=== PATIENT | male | born 1985 | race Caucasian/White ===

== ENCOUNTER 2017-08-29 17:35 | Observation (INO) ==
[2017-08-29] MEDS ORDERED: *HR* FentaNYL (PF) 100 MCG/2 ML VIAL IVP ONE ×2 (17:37→18:33)
--- NOTE | 2017-08-29 17:41 | Emergency Department Note ---
Disposition Clinical Impression: Traumatic amputation of digit of one hand without complication Disposition: Admitted As Inpatient Condition: Good Instructions: Finger Amputation (ED) Reasons to Return/Additional Instructions: Please closely follow the discharge instructions as provided to you by the orthopedic service. Return to the emergency department immediately should you have any other concerns Prescriptions: HYDROcodone/Acet 10/325 mg [[place] 10-325 mg] 1 tab PO Q6HR PRN 3 Days #18 tab PRN Reason: Pain Ibuprofen [Motrin] 800 mg PO Q8HR PRN #20 tablet PRN Reason: Pain cephALEXin [Keflex] 500 mg PO TID #30 capsule Referrals: Marcus Damon MD [Partnered Physician] - [facility] [Outside] Forms: ED Satisfaction Letter Time of Disposition: 19:11 Upper Extremity HPI - General Chief Complaint: ED Extremity Injury, Upper Stated Complaint: upper extremity Time Seen by Provider: 08/29/17 17:37 Source: patient, EMS Mode of arrival: EMS Limitations: no limitations Nursing Notes Reviewed: Yes Vital Signs Reviewed: Yes - History of Present Illness HPI Narrative: Patient cut digits 3, 4 and 5 of his left upper extremity on an edge saw in a work related accident several hours ago. He was transferred to our facility under the acceptance of the orthopedic surgeon for further evaluation. Injury Location: Left: fingers Onset (ago): hour(s) Other Injuries: none Handedness: right Place: work Pain Severity: severe Improves with: immobilization Worsens with: movement of extremity Context: laceration Associated symptoms: Reports: denies other symptoms Treatments prior to arrival: dressing, splint, other (tetanus update) - Related Data Home Medications Medication Instructions Recorded Confirmed Ibuprofen 800 mg PO TID 08/13/17 08/29/17 Cholecalciferol (D-3) [Vitamin D] 1,000 unit PO DAILY 08/29/17 08/29/17 Cyanocobalamin (B-12) [Vitamin B12] 1,000 mcg PO DAILY 08/29/17 08/29/17 traZODone [TraZODone] 50 mg PO HS 08/29/17 08/29/17 Previous Rx's Medication Instructions Recorded HYDROcodone/Acet 10/325 mg [[place] 1 tab PO Q6HR PRN 3 Days #18 tab 08/29/17 10-325 mg] Ibuprofen [Motrin] 800 mg PO Q8HR PRN #20 tablet 08/29/17 cephALEXin [Keflex] 500 mg PO TID #30 capsule 08/29/17 Allergies Allergy/AdvReac Type Severity Reaction Status Date / Time No Known Allergies Allergy Verified 08/29/17 14:39 All systems ED: reviewed and negative except as stated. Constitutional: Reports: as per HPI Eyes: Reports: as per HPI ENT ED: Reports: as per HPI Cardiovascular: Reports: as per HPI Respiratory: Reports: as per HPI Gastrointestinal: Reports: as per HPI Genitourinary: Reports: as per HPI Musculoskeletal: Reports: other (leftt upper extremity pain) Integumentary: Reports: other (Lacerations to left upper extremity) Neurological: Reports: as per HPI Psychiatric: Reports: as per HPI Endocrine: Reports: as per HPI Hematological/Lymphatic: Reports: as per HPI Allergic/Immunologic: Reports: as per HPI Past Medical History - Past Medical History Source: patient Medical history: Reports: hepatitis Psychiatric history: Reports: no psych history - Social History Smoking Status: Current every day smoker Smokeless Tobacco Status: No Alcohol use: Reports: none Drug use: Reports: marijuana Physical Exam Uncomfortable appearing - General Limitations: no limitations General appearance: alert, anxious - Head Head exam: atraumatic - ENT ENT exam: normal exam - Neck Neck exam: Present: normal inspection, full ROM - Chest Chest inspection: Present: normal inspection, symmetric chest wall rise - Respiratory Respiratory exam: Present: normal lung sounds bilaterally - Cardiovascular Cardiovascular exam: Present: regular rate, normal rhythm, normal heart sounds - Expanded Upper Extremity Exam Shoulder exam: Present: normal inspection Arm exam: Present: normal inspection Elbow exam: Present: normal inspection Forearm/Wrist exam: Present: normal inspection Hand exam: Present: other (Left upper extremity in splint and bulky bandage. The bandage was not removed) - Neurological Exam Neurological exam: Present: alert, oriented X3, CN II-XII intact - Psychiatric Psychiatric exam: Present: anxious - Skin Skin exam: Present: warm, dry Course Course Narrative: Patient sent from an outside facility due to traumatic amputations of digits 3, 4 and 5 of his left upper extremity. I did not remove the splint or bandage that was applied just prior to arrival. The patient was already provided with IV antibiotics and had his tetanus status updated. I did review the labs including CBC and metabolic profile drawn at the previous hospital. I also reviewed the transcribed report of his left hand x-ray. The orthopedic surgeon was contacted upon patient's arrival and he states he will evaluate the patient in the emergency department Addendum by Dr. Kamara: 19:11 - Patient re-evaluated by Ortho PA in consultation with Dr. Damon, they will admit the patient overnight to have surgery in the morning. We will give the patient Ancef. They have requested that the patient just have xeroform and dry gauze wrapped around the digits until tomorrow. - Reevaluation(s) Reevaluation #1: Dr. Damon recs outpatient follow up for planned surgical intervention next week. The orthopedic PA has evaluated the patient in the ED and has completed the surgical consent. Patient will be provided with dc instructions by the ortho PA Reevaluation #2: PastRx reviewed. Patient states he no longer takes Suboxone Reevaluation #3: I have asked the orthopedic instructional systems design consultant to reevaluate the patient. I am concerned about pain control. I am concerned that the patient may require operative washout of the wound and tissue debridement. Additional Reevaluation(s): At the time of shift change 19:00 I am awaiting orthopedic reassessment. Care will be endorsed to the oncoming physician Dr. Felix. Vital Signs Temperature 97.8 F 08/29/17 17:37 Pulse Rate 79 08/29/17 17:37 Respiratory Rate 12 08/29/17 17:37 Blood Pressure 156/99 08/29/17 17:37 O2 Sat by Pulse Oximetry 100 08/29/17 17:37 Temperature 97.8 F 08/29/17 17:37 Pulse Rate 79 08/29/17 17:37 Respiratory Rate 12 08/29/17 17:37 Blood Pressure 156/99 08/29/17 17:37 O2 Sat by Pulse Oximetry 100 08/29/17 17:37 Oxygen Delivery Oxygen Delivery Room Air Extremity Injury, Upper - MDM Narrative Medical decision making narrative: Patient sent from an outside facility due to traumatic amputations of digits 3, 4 and 5 of his left upper extremity. I did not remove the splint or bandage that was applied just prior to arrival. The patient was already provided with IV antibiotics and had his tetanus status updated. I did review the labs including CBC and metabolic profile drawn at the previous hospital. I also reviewed the transcribed report of his left hand x-ray. The orthopedic surgeon was contacted upon patient's arrival and he states he will evaluate the patient in the emergency department Addendum by Dr. Kamara: 19:11 - Patient re-evaluated by Ortho PA in consultation with Dr. Damon, they will admit the patient overnight to have surgery in the morning. We will give the patient Ancef. They have requested that the patient just have xeroform and dry gauze wrapped around the digits until tomorrow. - Medical Records Medical records reviewed: Yes I reviewed the patient's medical records. - Lab Data Lab results reviewed: Yes I reviewed the patient's lab results. - Radiology Data Radiology results reviewed: Yes I reviewed the patient's radiology results. S.B.A.R. - S.B.A.R. Situation: Demographics, MOA Background: Presenting Complaint, Relevant PMH, Meds, & Allergies Assessment: Vital Signs, Course and respsone to treatment, Exam Concerns, Patient/Family Expectation, Pertinant Lab Results, Outstanding Labs Recommendation: Barrier(s) to disposition, Recommendation based on pending studies, treatments, or consults S.B.A.R. Report Given to: Dr. Garcia - Will f/u on CBC, BMP, coags
--- NOTE | 2017-08-29 18:39 | Orthopedic Consult Note ---
Date of Encounter: 08/29/17 Time of Encounter: 18:00 Assessment and Plan (1) Traumatic amputation of digit of one hand without complication Current Visit: Yes Status: Acute Patient will require surgical intervention on outpatient basis. Scheduled for Left long finger and ring finger completion amputation and small finger wound debridement and closure on 09/02/[address] Damon. I did discuss the procedure as well as r/b/a with the patient and he expressed understanding. Consent was obtained and given to Dr. Damon. Copy given to surgery department to be scanned into system. Patient informed to arrive to the ASC on 09/02/17 at 6:15am. Instructed to be NPO after midnight before and no smoking. Keep dressings to left hand in place until day of surgery. Do not get wet. Ice and elevate as needed. Patient will be started on keflex and pain medication by ER physician. UPDATE 19:00 - Patient is now not willing to wait until 09/02/17 for surgery. Discussed case with Dr. Damon again and agreeable to having patient admitted overnight for pain control. Plan for surgery tomorrow by Dr. Damon. ER will apply xeroform and dry gauze dressings to be left in place until surgery. NPO after midnight tonight (2) Laceration of left little finger Current Visit: No Status: Acute Qualifiers: Encounter type: initial encounter Damage to nail status: with damage Foreign body presence: unspecified Qualified Code(s): S61.317A - Laceration without foreign body of left little finger with damage to nail, initial encounter (3) Laceration of left middle finger Current Visit: No Status: Acute Qualifiers: Encounter type: initial encounter Damage to nail status: with damage Foreign body presence: unspecified Qualified Code(s): S61.313A - Laceration without foreign body of left middle finger with damage to nail, initial encounter (4) Laceration of left ring finger Current Visit: No Status: Acute Qualifiers: Encounter type: initial encounter Damage to nail status: with damage Foreign body presence: unspecified Qualified Code(s): S61.315A - Laceration without foreign body of left ring finger with damage to nail, initial encounter History of Present Illness Chief complaint: left hand laceration HPI: Mr. Jacobs is a 32 year old male was transferred to [facility] ER from [facility] for a laceration injury to left hand long, ring and small fingers from a saw blade. This injury occurred at work earlier this afternoon. Patient states pain is severe and constant since the injury, he admits to numbness to fingers. He denies pain anywhere else, denies chest pain, SOB, fevers. He feels well otherwise. States he received tetanus shot in [place] [facility] today. He is right hand dominant. Past Med Surg Social Fam HX - Past Medical History Medical history: hepatitis Psychiatric history: no psych history - Social History Smoking Status: Current every day smoker Smokeless Tobacco Status: No Alcohol use: none Drug use: marijuana Medications and Allergies Ibuprofen 800 mg PO TID 08/13/17 [History] Cholecalciferol (D-3) [Vitamin D] 1,000 unit PO DAILY 08/29/17 [History] Cyanocobalamin (B-12) [Vitamin B12] 1,000 mcg PO DAILY 08/29/17 [History] HYDROcodone/Acet 10/325 mg [[place] 10-325 mg] 1 tab PO Q6HR PRN 3 Days #18 tab [Rx] Ibuprofen [Motrin] 800 mg PO Q8HR PRN #20 tablet 08/29/17 [Rx] cephALEXin [Keflex] 500 mg PO TID #30 capsule 08/29/17 [Rx] traZODone [TraZODone] 50 mg PO HS 08/29/17 [History] 3 Allergy/AdvReac Type Severity Reaction Status Date / Time No Known Allergies Allergy Verified 08/29/17 14:39 All Systems Reviewed: The remainder of the systems were reviewed and are negative - Constitutional Constitutional: as per HPI - Cardiovascular Cardiovascular: as per HPI - Respiratory Respiratory: as per HPI - Musculoskeletal Musculoskeletal: as per HPI Physical Exam - Constitutional Vitals: Temp Pulse Resp BP Pulse Ox 97.8 F 79 12 156/99 100 08/29/17 17:37 08/29/17 17:37 08/29/17 17:37 08/29/17 17:37 08/29/17 17:37 - Wrist & Hand left Location of pain: long finger (full thickness laceration involving distal end of LF just proximal to DIPJ with distal tip and nail plate minimally attached on volar side, motion restricted secondary to pain. no active bleeding), ring finger (full thickness laceration involving distal end of RF just proximal to DIPJ with distal tip minimally attached on volar side, nail plate missing, second laceration at base of RF on palmar side. motion restricted secondary to pain. no active bleeding), small finger (laceration to distal tip of SF distal to nail. nail is intact. motion restricted secondary to pain. no active bleeding ) Results - Labs Result Diagrams: 08/29/17 19:41 Labs: All other labs normal. - Diagnostic results Wrist/Hand x-ray: report reviewed, image reviewed - Attending Attestation Case and plan of care discussed with supervising physician who was available for all aspects of care.
[2017-08-29] MEDS ORDERED: ceFAZolin 1,000 MG in Water for inj. (sterile) 20 ML 10 ML IVP ONE (19:10)
--- NOTE | 2017-08-29 20:27 | Internal Med History&Physical ---
<VinhcarlaJesus Albertoconnie - Last Filed: 08/29/17 22:06> Date of Encounter: 08/29/17 Time of Encounter: 20:20 Internal Medicine - H&P: HPI Chief complaint: left hand injury Admitted From: Emergency Dept Plans for Post Hospital Care: Home History of present illness: Mr. Jacobs is a 32 year old male with past medical history of Gerd, anxiety, tobacco use, hepatitis C, history of IV drug use. Patient arrived to the emergency room today with chief complaint of left hand injury. He states that around 2 PM earlier today he was cutting wood with a saw and accidentally cut off the top part of his left 3rd, 4th, 5th digits. This occurred when he was cutting wood with a saw and attempted to clean off part of the wood when his hand accidentally got pushed toward the blade. he denies being on drugs or being intoxicated when this occurred. Orthopedic surgery was consult it at the emergency department, patient was evaluated by orthopedic surgery team who did make dressing changes. Patient was started on cefazolin in the emergency department. Initial plan by orthopedic surgery was to have surgery on Friday. However, patient is not willing to wait this long to receive surgery, so plan is to be admitted to the hospital for pain control and have surgery tomorrow, 08/30 with for amputation of left 3rd and 4th digits and left 5th digit debridement. patient denies nausea, vomiting, diarrhea, fever, chills , chest pain, shortness of breath, hematuria, hematochezia, melena. patient has history of IV drug use and states that his last use was about nine months ago. he occasionally smokes marijuana. he deniesm alcoholm usem. Past Med Surg Social Fam HX - Past Medical History Medical history: hepatitis Psychiatric history: no psych history - Social History Smoking Status: Current every day smoker Smokeless Tobacco Status: No Alcohol use: none Drug use: marijuana Internal Medicine - H&P: Meds Ibuprofen 800 mg PO TID 08/13/17 [History] Cholecalciferol (D-3) [Vitamin D] 1,000 unit PO DAILY 08/29/17 [History] Cyanocobalamin (B-12) [Vitamin B12] 1,000 mcg PO DAILY 08/29/17 [History] HYDROcodone/Acet 10/325 mg [[place] 10-325 mg] 1 tab PO Q6HR PRN 3 Days #18 tab [Rx] Ibuprofen [Motrin] 800 mg PO Q8HR PRN #20 tablet 08/29/17 [Rx] cephALEXin [Keflex] 500 mg PO TID #30 capsule 08/29/17 [Rx] traZODone [TraZODone] 50 mg PO HS 08/29/17 [History] 3 Allergy/AdvReac Type Severity Reaction Status Date / Time No Known Allergies Allergy Verified 08/29/17 14:39 All Systems PM: A 10-system review of systems was performed and is negative for pertinent findings except as documented above in the HPI. - Constitutional Constitutional: as per HPI - EENT Eyes: as per HPI Ears: as per HPI Nose, mouth and throat: as per HPI - Breasts Breasts: as per HPI - Cardiovascular Cardiovascular ROS IM: as per HPI - Respiratory Respiratory: as per HPI - Gastrointestinal Gastrointestinal: as per HPI - Genitourinary Genitourinary ROS male: as per HPI - Musculoskeletal Musculoskeletal ROS IM: as per HPI - Integumentary Integumentary IM: as per HPI - Neurological Neurological ROS: as per HPI - Psychiatric Psychiatric: as per HPI - Endocrine Endocrine IM: as per HPI - Hematologic/Lymphatic Hematologic/Lymphatic: as per HPI - Allergic/Immunologic Allergic/Immunologic: as per HPI - Constitutional Vitals: Temp Pulse Resp BP Pulse Ox 97.8 F 79 12 156/99 100 08/29/17 17:37 08/29/17 17:37 08/29/17 17:37 08/29/17 17:37 08/29/17 17:37 General appearance: Present: A&O X 3, pleasant, no acute distress, answers questions appropriately Exam: Patient appears very disheveled looking - Head Additional comments: Face appears erythematous from Sun, scars from prior lacerations present on forehead - Neck Neck exam general surgery: Present: supple, trachea midline - Respiratory Respiratory exam: Present: CTAB - Cardiovascular Cardiovascular exam: Present: RRR, +S1, +S2 - GI/Abdominal GI/Abdominal exam: Present: normal bowel sounds, soft. Absent: distended, tenderness - Extremities Exam Additional comments: Various areas of cuts present on bilateral upper extremities. Left hand is completely in a cast going up to the wrist. Left thumb is exposed. - Neurological Exam Neurological exam: Present: alert, oriented X3, no focal deficits - Psychiatric Psychiatric exam: Present: normal affect, normal mood Internal Med - H&P Results - Labs CBC & Chem 7: 08/29/17 19:41 08/29/17 19:41 - Assessment and plan (1) Traumatic amputation of digit of one hand without complication Current Visit: Yes Status: Acute Assessment and plan: Patient was using saw and accidentally cut off the top part of his left 3rd, 4th , 5th digits. Patient was already seen by orthopedic surgery team, and they have made recommendations for addressing changes as well. Plan: scheduled for left 3rd and 4th digit complete amputation with left 5th digit wound debridement and closure tomorrow morning NPO after midnight pain control patient received a dose of incest in the emergency department. Will hold off on further antibiotics for now as he has no elevated WBC. (2) Laceration of left little finger Current Visit: No Status: Acute Assessment and plan: Plan as above Qualifiers: Encounter type: initial encounter Damage to nail status: with damage Foreign body presence: unspecified Qualified Code(s): S61.317A - Laceration without foreign body of left little finger with damage to nail, initial encounter (3) Laceration of left middle finger Current Visit: No Status: Acute Assessment and plan: Plan as above Qualifiers: Encounter type: initial encounter Damage to nail status: with damage Foreign body presence: unspecified Qualified Code(s): S61.313A - Laceration without foreign body of left middle finger with damage to nail, initial encounter (4) Laceration of left ring finger Current Visit: No Status: Acute Assessment and plan: Plan as above Qualifiers: Encounter type: initial encounter Damage to nail status: with damage Foreign body presence: unspecified Qualified Code(s): S61.315A - Laceration without foreign body of left ring finger with damage to nail, initial encounter (5) History of hepatitis C Current Visit: Yes Status: Acute Assessment and plan: History of hepatitis C from IV drug use. Patient states that his last use was about 9 months ago. (6) Tobacco abuse Current Visit: Yes Status: Acute Assessment and plan: Smokes one half packs per day will do nicotine patch (7) DVT prophylaxis Current Visit: Yes Status: Acute Assessment and plan: Heparin SQ (8) JAIRO (acute kidney injury) Current Visit: Yes Status: Acute Assessment and plan: suspect secondary to dehydration. fluid bolus with maintenance fluids. - Time Spent With Patient Total time spent is greater than 50% in coordination of care (as documented) at patient's floor/unit and/or counseling patient: <Chip Garcia - Last Filed: 08/29/17 22:27> Date of Encounter: 08/29/17 Internal Medicine - H&P: HPI History of present illness: Mr. Jacobs is a 32 year old male All Systems PM: A 10-system review of systems was performed and is negative for pertinent findings except as documented above in the HPI. - Constitutional Vitals: Temp Pulse Resp BP Pulse Ox 98.6 F 78 17 143/69 93 08/29/17 20:57 08/29/17 20:57 08/29/17 20:57 08/29/17 20:57 08/29/17 20:57 Internal Med - H&P Results - Labs CBC & Chem 7: 08/29/17 19:41 08/29/17 19:41 - Attending Attestation I have seen and examined this patient independently. I have discussed the with resident physician Dr. Kramer regarding the management plan. Agree with the documentation. - Assessment and plan (1) Laceration of left little finger Current Visit: No Status: Acute Qualifiers: Encounter type: initial encounter Damage to nail status: with damage Foreign body presence: unspecified Qualified Code(s): S61.317A - Laceration without foreign body of left little finger with damage to nail, initial encounter (2) Laceration of left middle finger Current Visit: No Status: Acute Qualifiers: Encounter type: initial encounter Damage to nail status: with damage Foreign body presence: unspecified Qualified Code(s): S61.313A - Laceration without foreign body of left middle finger with damage to nail, initial encounter (3) Laceration of left ring finger Current Visit: No Status: Acute Qualifiers: Encounter type: initial encounter Damage to nail status: with damage Foreign body presence: unspecified Qualified Code(s): S61.315A - Laceration without foreign body of left ring finger with damage to nail, initial encounter (4) Traumatic amputation of digit of one hand without complication Current Visit: Yes Status: Acute (5) History of hepatitis C Current Visit: Yes Status: Acute (6) DVT prophylaxis Current Visit: Yes Status: Acute (7) Tobacco abuse Current Visit: Yes Status: Acute (8) JAIRO (acute kidney injury) Current Visit: Yes Status: Acute - Time Spent With Patient Total time spent is greater than 50% in coordination of care (as documented) at patient's floor/unit and/or counseling patient:
[2017-08-29] MEDS ORDERED: Naloxone 0.4 MG/ML INJ IVP PRN (20:31)
[2017-08-29 20:36] LABS: Basophils % 0.1 %; Eosinophils # 0.2 K/mcL (0.0-0.6); Eosinophils % 2.1 %; Hematocrit 38.1 % (37.5-50.1); Hemoglobin 13.2 g/dL (12.9-16.9); Immature Granulocytes % 0.3 % (0-4); Lymphocytes # 1.9 K/mcL (0.6-4.6); Lymphocytes % 17.7 %; Mean Corpuscular HGB Conc 34.6 g/dL (31.6-35.5); Mean Corpuscular Hemoglobin 29.5 pg (28.0-33.3); Mean Platelet Volume 9.3 fL (9.4-12.4); Monocytes # 0.8 K/mcL (0.0-1.3); Monocytes % 7.8 %; Neutrophils # 7.7 K/mcL (1.6-8.9); Platelet Count 209 K/mcL (140-400); Red Blood Count 4.48 M/mcL (4.19-5.50); Red Cell Distribution Width 12.9 % (11.5-14.5)
[2017-08-29] MEDS ORDERED: 0.9 % Sodium Chloride 1,000 ML IVC ONE (20:37)
[2017-08-29 20:42] LABS: Prothrombin Time 11.2 Seconds (9.4-12.1)
[2017-08-29 20:44] LABS: Activated Partial Thrombo Time 30.5 Seconds (26.0-36.0)
[2017-08-29] MEDS ORDERED: 0.9 % Sodium Chloride 1,000 ML IVC SCH (20:45)
[2017-08-29] MEDS ORDERED: Nicotine 14 MG PATCH.TD24 TD SCH (21:00)
[2017-08-29] MEDS ORDERED: traZODone 50 MG TABLET PO SCH (21:00)
[2017-08-29 21:03] LABS: BUN/Creatinine Ratio 20 (6-26); Blood Urea Nitrogen 20 mg/dL (6-20); Calcium 8.8 mg/dL (8.6-10.3); Carbon Dioxide 26 mEq/L (23-29); Chloride 104 mEq/L (98-107); Glucose 85 mg/dL (70-105); Osmolality,Calculated 282 (280-300); Potassium 3.9 mEq/L (3.5-5.1); Sodium 135 mEq/L (136-145); eGFR For African Americans > 60 (> 60); eGFR For Non-African Americans > 60 (> 60)
[2017-08-29 21:44] LABS: Alanine Aminotransferase 136 Units/L (7-52); Albumin 4.3 g/dL (3.5-5.7); Albumin/Globulin Ratio 1.7 (1.1-2.2); Alkaline Phosphatase 99 Units/L (34-104); Aspartate Amino Transferase 200 Units/L (13-39); Bilirubin,Direct 0.1 mg/dL (0.0-0.2); Bilirubin,Indirect 0.6 mg/dL (0.0-1.2); Bilirubin,Total 0.7 mg/dL (0.3-1.0); Globulin 2.6 g/dL (2.4-3.5); Total Protein 6.9 g/dL (6.4-8.9)
[2017-08-29] MEDS ORDERED: OXYCODONE Oral CONC 10 MG/0.5 ML ORAL.SYG SL PRN ×3 (22:04→22:15)
[2017-08-29] MEDS: Ketorolac 30 MG/ML VIAL IVP PRN (22:29)
[2017-08-30] MEDS: Ketorolac 30 MG/ML VIAL IVP PRN (05:24)
[2017-08-30 05:30] LABS: Basophils % 0.3 %; Eosinophils # 0.2 K/mcL (0.0-0.6); Eosinophils % 3.3 %; Hemoglobin 12.4 g/dL (12.9-16.9); Immature Granulocytes % 0.2 % (0-4); Lymphocytes # 1.1 K/mcL (0.6-4.6); Lymphocytes % 17.2 %; Mean Corpuscular HGB Conc 33.5 g/dL (31.6-35.5); Mean Corpuscular Hemoglobin 28.8 pg (28.0-33.3); Mean Corpuscular Volume 85.8 fL (83.0-100.0); Mean Platelet Volume 9.6 fL (9.4-12.4); Monocytes # 0.6 K/mcL (0.0-1.3); Monocytes % 9.1 %; Neutrophils # 4.6 K/mcL (1.6-8.9); Platelet Count 173 K/mcL (140-400); Red Blood Count 4.31 M/mcL (4.19-5.50); Segmented Neutrophils % 69.9 %
[2017-08-30 05:55] LABS: Alanine Aminotransferase 104 Units/L (7-52); Albumin 3.3 g/dL (3.5-5.7); Albumin/Globulin Ratio 1.4 (1.1-2.2); Alkaline Phosphatase 92 Units/L (34-104); Aspartate Amino Transferase 132 Units/L (13-39); BUN/Creatinine Ratio 26 (6-26); Bilirubin,Total 0.4 mg/dL (0.3-1.0); Blood Urea Nitrogen 20 mg/dL (6-20); Calcium 8.3 mg/dL (8.6-10.3); Carbon Dioxide 25 mEq/L (23-29); Chloride 108 mEq/L (98-107); Globulin 2.4 g/dL (2.4-3.5); Glucose 105 mg/dL (70-105); Magnesium 1.7 mg/dL (1.6-2.6); Osmolality,Calculated 287 (280-300); Phosphorous 2.2 mg/dL (2.7-4.5); Potassium 4.1 mEq/L (3.5-5.1); Sodium 137 mEq/L (136-145); Total Protein 5.7 g/dL (6.4-8.9); eGFR For African Americans > 60 (> 60); eGFR For Non-African Americans > 60 (> 60)
[2017-08-30] MEDS ORDERED: Cyanocobalamin (B-12) 1,000 MCG TABLET PO SCH (09:00)
[2017-08-30] MEDS ORDERED: Cholecalciferol (D-3) 1,000 UNIT TABLET PO SCH (09:00)
--- NOTE | 2017-08-30 09:06 | Anesthesia Evaluation PreOp ---
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 Any Significant HX Other Medical History: Hepatic (hep c) Anesthesia History: Past Anesthesia (none , no known family hx of anes complications) Alcohol Use: none Drug use: marijuana (three days ago), other (hx of IV drug use, pt states that he has not used drugs recently) Medications and Allergies Ibuprofen 800 mg PO TID 08/13/17 [History] Cholecalciferol (D-3) [Vitamin D] 1,000 unit PO DAILY 08/29/17 [History] Cyanocobalamin (B-12) [Vitamin B12] 1,000 mcg PO DAILY 08/29/17 [History] HYDROcodone/Acet 10/325 mg [[place] 10-325 mg] 1 tab PO Q6HR PRN 3 Days #18 tab [Rx] Ibuprofen [Motrin] 800 mg PO Q8HR PRN #20 tablet 08/29/17 [Rx] cephALEXin [Keflex] 500 mg PO TID #30 capsule 08/29/17 [Rx] traZODone [TraZODone] 50 mg PO HS 08/29/17 [History] 3 Allergy/AdvReac Type Severity Reaction Status Date / Time No Known Allergies Allergy Verified 08/29/17 14:39 - Meds/Allergy Pre-op Review Medications Reviewed: Yes Allergies Reviewed: Yes Beta Blockers on Current Med List: No Anesthesia Results - Labs 08/30/17 05:13 08/30/17 05:13 Anesthesia Exam Vital Signs/O2 Sat, Most Current Temp Pulse Resp BP Pulse Ox 98.8 F 67 14 135/72 97 08/30/17 06:42 08/30/17 06:42 08/30/17 06:42 08/30/17 06:42 08/30/17 06:42 Height: 1.83m Weight: 79kg NPO (# of Hours): >8 Pain Scale: 8 Pain Scale Used: Numeric (1 - 10) - HEENT Pupil (Motor): Pupils equal, EOMI Mallampati: III Teeth: Normal Oral Opening: Greater than 3 - PUBLICATIONS INSPECTOR LOC: Oriented PUBLICATIONS INSPECTOR Motor: Normal RUE, Normal LUE, Normal RLE, Normal LLE, Normal Face PUBLICATIONS INSPECTOR Sensory: Normal: RUE, LUE, RLE, LLE, Face - Cardiac Rhythm: Regular - Pulmonary Breath Sounds: bilateral Clear Respiratory Effort: Symmetrical Anesthesia Assess/Plan ASA Score: 3 (hep c, smoker) Modified Anahi Scale for Level of Consciousness: Cooperative, oriented, and tranquil Anesthetic Plan: General Monitoring Plan: Standard Monitors Recovery Plan: PACU
[2017-08-30] MEDS ORDERED: Albuterol 2.5 MG/3 ML NEBULIZER ONE (09:30)
[2017-08-30] MEDS ORDERED: *HR* FentaNYL (PF) 100 MCG/2 ML VIAL ONE ×2 (09:36→11:12)
[2017-08-30] MEDS ORDERED: *HR* Midazolam HCl 2 MG/2 ML VIAL ONE (09:36)
[2017-08-30] MEDS ORDERED: *HR* Propofol 200 MG/20 ML VIAL IVP ONE (09:37)
[2017-08-30] MEDS ORDERED: cefTRIAXone 2,000 MG in Water for inj. (sterile) 20 ML 20 ML IVP ONE (10:14)
[2017-08-30] MEDS ORDERED: *HR* Labetalol 20 MG/4 ML SYRINGE IVP PRN ×2 (10:46→14:15)
[2017-08-30] MEDS ORDERED: *HR* Morphine 2 MG/ML SYRINGE IVP PRN ×2 (10:46→14:15)
[2017-08-30] MEDS ORDERED: *HR* Meperidine 25 MG/ML SYRINGE IVP PRN ×2 (10:46→14:15)
[2017-08-30] MEDS ORDERED: *HR* Promethazine 25 MG/ML VIAL IVP PRN ×2 (10:46→14:15)
[2017-08-30] MEDS ORDERED: *HR* HYDROmorphone 2 MG/ML SYRINGE ONE (10:48)
[2017-08-30] MEDS ORDERED: Lidocaine -MPF 2% 2 ML VIAL ONE (11:22)
[2017-08-30] MEDS ORDERED: Ondansetron 4 MG/2 ML VIAL ONE (11:46)
[2017-08-30] MEDS ORDERED: Dexamethasone 4 MG/ML VIAL ONE (11:46)
--- NOTE | 2017-08-30 13:16 | Internal Med Progress Note ---
Date of Encounter: 08/30/17 Time of Encounter: 13:12 - Assessment and plan (1) Traumatic amputation of digit of one hand without complication Current Visit: Yes Status: Acute Assessment and plan: Patient was using saw and accidentally cut off the top part of his left 3rd, 4th , 5th digits. Patient underwent amputation in parts of left 3/4/5 digits tolerated procedure without complication. Patient stable to go home later today. (2) Laceration of left little finger Current Visit: No Status: Inactive Qualifiers: Encounter type: initial encounter Damage to nail status: with damage Foreign body presence: unspecified Qualified Code(s): S61.317A - Laceration without foreign body of left little finger with damage to nail, initial encounter (3) Laceration of left middle finger Current Visit: No Status: Inactive Qualifiers: Encounter type: initial encounter Damage to nail status: with damage Foreign body presence: unspecified Qualified Code(s): S61.313A - Laceration without foreign body of left middle finger with damage to nail, initial encounter (4) Laceration of left ring finger Current Visit: No Status: Inactive Qualifiers: Encounter type: initial encounter Damage to nail status: with damage Foreign body presence: unspecified Qualified Code(s): S61.315A - Laceration without foreign body of left ring finger with damage to nail, initial encounter (5) History of hepatitis C Current Visit: Yes Status: Acute Assessment and plan: History of hepatitis C from IV drug use. Patient states that his last use was about 9 months ago. No acute findings. (6) DVT prophylaxis Current Visit: Yes Status: Acute Assessment and plan: Heparin SQ (7) Tobacco abuse Current Visit: Yes Status: Acute Assessment and plan: Smokes one half packs per day will do nicotine patch (8) JAIRO (acute kidney injury) Current Visit: Yes Status: Acute Assessment and plan: suspect secondary to dehydration. fluid bolus with maintenance fluids. Resolved - Time Spent With Patient Total time spent is greater than 50% in coordination of care (as documented) at patient's floor/unit and/or counseling patient: - Subjective Interval history: Patient in OR for finger amputations. I reassessed patient after he returned from procedure. He is doing well with no acute issues. States pain is controlled. - Constitutional Vitals: Temp Pulse Resp BP Pulse Ox 98.8 F 67 14 135/72 97 08/30/17 06:42 05/26/18 06:42 08/30/17 06:42 08/30/17 06:42 08/30/17 06:42 General appearance: Present: A&O X 3, pleasant, no acute distress, answers questions appropriately - Head Head exam: Present: atraumatic, normocephalic - Eye Eye exam: Present: PERRL, conjuntiva pink, sclera anicteric Pupils: Present: PERRL - Neck Neck exam general surgery: Present: supple, trachea midline. Absent: lymphadenopathy - Respiratory Respiratory exam: Present: CTAB. Absent: accessory muscle use, rales, rhonchi, wheezes - Cardiovascular Cardiovascular exam: Present: RRR, +S1, +S2. Absent: diastolic murmur, gallop, rubs, systolic murmur - GI/Abdominal GI/Abdominal exam: Present: normal bowel sounds, soft, no peritoneal signs. Absent: distended, tenderness - Extremities Exam Extremities exam: Present: warm, radial pulses palpable and symmetrical. Absent : calf tenderness, cyanotic, pedal edema Additional comments: Left hand is wrapped post operative and so exam limited. - Neurological Exam Neurological exam: Present: CN II-XII intact, oriented X3, no focal deficits. Absent: pronater drift, facial droop, speech deficit - Skin Skin exam: Present: dry, intact Internal Medicine: Result - Labs CBC & Chem 7: 08/30/17 05:13 08/30/17 05:13 Labs: Short CBC 08/30/17 Range/Units 05:13 WBC 6.6 (4.3-11.1) K/mcL Hgb 12.4 L (12.9-16.9) g/dL Hct 37.0 L (37.5-50.1) % Plt Count 173 (140-400) K/mcL Neutrophils # 4.6 (1.6-8.9) K/mcL BMP 08/30/17 05:13 Sodium 137 Potassium 4.1 Chloride 108 H Carbon Dioxide 25 BUN 20 Creatinine 0.76 Glucose 105 Calcium 8.3 L Liver Function 08/30/17 Range/Units 05:13 Total Bilirubin 0.4 (0.3-1.0) mg/dL AST 132 H (13-39) Units/L ALT 104 H (7-52) Units/L Alkaline Phosphatase 92 (34-104) Units/L Albumin 3.3 L (3.5-5.7) g/dL - ABG Interpretation ABG results: PT/INR, D-dimer PT 11.2 Seconds (9.4-12.1) 08/29/17 19:41 Consult Discharge Plan - Plan Referrals: Gabino Hernadez MD [Primary Care Provider] - Prescriptions: OxyCODONE Immed Rel [Roxicodone 5 MG] 5 mg PO Q6HR PRN 7 Days #28 tablet PRN Reason: Pain cephALEXin [Keflex] 500 mg PO QID #20 capsule
--- NOTE | 2017-08-30 13:26 | Discharge Summary ---
Orders not resulted at time of discharge: Pending orders 08/30/17 12:30 Surgical Pathology [PTH] Routine Date of Encounter: 08/30/17 Time of Encounter: 13:23 - Discharge Diagnosis (1) Traumatic amputation of digit of one hand without complication Priority: Primary Status: Acute - Hospital Course Hospital course: Mr. Jacobs is a 32 year old male - Time Spent with Patient Total time spent providing and/or coordinating discharge services: - Discharge Medications Prescriptions: OxyCODONE Immed Rel [Roxicodone 5 MG] 5 mg PO Q6HR PRN 7 Days #28 tablet PRN Reason: Pain cephALEXin [Keflex] 500 mg PO QID #20 capsule Home Medications: Ibuprofen 800 mg PO TID 08/13/17 [History] Cholecalciferol (D-3) [Vitamin D] 1,000 unit PO DAILY 08/29/17 [History] Cyanocobalamin (B-12) [Vitamin B12] 1,000 mcg PO DAILY 08/29/17 [History] HYDROcodone/Acet 10/325 mg [[place] 10-325 mg] 1 tab PO Q6HR PRN 3 Days #18 tab [Rx] Ibuprofen [Motrin] 800 mg PO Q8HR PRN #20 tablet 08/29/17 [Rx] cephALEXin [Keflex] 500 mg PO TID #30 capsule 08/29/17 [Rx] traZODone [TraZODone] 50 mg PO HS 08/29/17 [History] OxyCODONE Immed Rel [Roxicodone 5 MG] 5 mg PO Q6HR PRN 7 Days #28 tablet [Rx] cephALEXin [Keflex] 500 mg PO QID #20 capsule 08/30/17 [Rx] Allergies/Adverse Reactions: 3 Allergy/AdvReac Type Severity Reaction Status Date / Time No Known Allergies Allergy Verified 08/29/17 14:39 Date of admission: 08/29/17 22:28 Primary care physician: Gabino Hernadez MD Labs on day of discharge: Labs from last 24 hours 08/30/17 08/30/17 05:13 05:13 WBC 6.6 RBC 4.31 Hgb 12.4 L Hct 37.0 L MCV 85.8 MCH 28.8 MCHC 33.5 RDW 13.0 Plt Count 173 MPV 9.6 Immature Gran % 0.2 Seg Neutrophils % 69.9 Lymphocytes % 17.2 Monocytes % 9.1 Eosinophils % 3.3 Basophils % 0.3 Neutrophils # 4.6 Lymphocytes # 1.1 Monocytes # 0.6 Eosinophils # 0.2 Basophils # 0.0 Sodium 137 Potassium 4.1 Chloride 108 H Carbon Dioxide 25 BUN 20 Creatinine 0.76 Est GFR ( Amer) > 60 Est GFR (Non-Af Amer) > 60 BUN/Creatinine Ratio 26 Glucose 105 Calculated Osmolality 287 Calcium 8.3 L Phosphorus 2.2 L Magnesium 1.7 Total Bilirubin 0.4 AST 132 H ALT 104 H Alkaline Phosphatase 92 Serum Total Protein 5.7 L Albumin 3.3 L Globulin 2.4 Albumin/Globulin Ratio 1.4 - Additional Comments Do not remove splint Elevate hand. Do not move fingers Use ice for 1 to 2 hour 3 times a day for the next 2 days. No lifting with the operative hand No sports or gym activities follow-up on Friday with Mayte Alcantara PA-C Call the office at [phone] to confirm appointment time - Patient Status Disposition: Home, Self-Care Condition: Good Functional capacity at discharge: independent ambulation Overall status at discharge: patient is progressing back to baseline - Discharge Instructions Follow Up With: Gabino Hernadez MD [Primary Care Provider] -
--- NOTE | 2017-08-30 13:35 | Operative Note ---
Date of procedure: 08/30/17 Pre-op diagnosis: Left long and ring finger tip amputations, with small finger partial tip am Post-op diagnosis: other (Left long and ring finger tip amputations, with small finger partial tip amputation, laceration to volar base of long finger and laceration to third webspace) Procedure: Left long finger completion amputation at base of middle phalanx level Left ring finger completion amputation at base of middle phalanx level Left small finger debridement of wound including open tuft fracture, closure of wound with full-thickness skin grafting approximately 1 cm wide by 1.5 cm long Left long finger explosion wound with simple closure of skin 1.5 cm long Left hand third webspace simple skin closure 2.5 cm long Anesthesia: JAA Surgeon: Marcus Damon Was there an scheduling assistant present: No Estimated blood loss (cc): 20 Tourniquet Time (Minutes): 30 Specimen: Sent to pathology Condition: stable Disposition: PACU Procedure in Detail: The patient received IV antibiotics in the holding area, was brought into the operating room and placed on the OR table in supine position with the affected left upper extremity on a hand table. A sign in was performed. The patient underwent general anesthesia, a tourniquet was placed on the left arm close to the axilla. The extremity was prepped and draped in usual sterile fashion. A timeout was performed. The open wounds were copiously irrigated with normal saline. The patient had macerated complete amputations of the tip of the left long and ring fingers, and the DIP joint level. The small finger sustained injury with this minor partial amputation, with some full-thickness soft tissue loss at the volar pad and also a tuft fracture. The extremity was then elevated , exsanguinated with an [place] wrap, and the tourniquet was wrist pressure of 250 mmHg. The patient had a 1.5 cm transverse laceration at the base of the long finger, at the MP flexion crease. It is slightly more to the radial side. The wound was opened up and explored extremity sure the flexor tendons were intact. The radial sided neurovascular bundles were also noted to be intact. A sharp fishmouth incision was made on the long finger, with the proximal end of the incision at the level of the base of P2, and the distal flaps just proximal to the DIP joint. Sharply dissected down to the bone. A bone cutter was then used to cut through the shaft of the middle phalanx. This amputation level was at the base of the middle phalanx, just distal to the insertion of the flexor digitorum superficialis slips. The exposed bone edge was cut back on again with a rongeur, followed by a rasp. The neurovascular bundles were dissected out, pulled on, cauterized with the bipolar and then cut allowing them to retract into the soft tissue. The steps were repeated at the ring finger, with similar amputation level at the base of the middle phalanx. The tourniquet was then let down, irrigating the wound and obtained hemostasis with bipolar cautery. Starting at the long finger, the volar skin flap was then brought up and closed dorsally with a 5-0 nylon simple sutures, closing the wound, making sure there were no dog-ears, excising as necessary. The tip appeared well perfused. The ring finger was also closed in similar fashion. Moving to the small finger, as well as skin irrigated edges debrided with a scalpel and also curetting. The tuft was debrided. The skin edges were then closed with 5-0 nylon simple sutures. There was an area on the volar radial pad that measured about 1 cm across and 1.5 scm long with was full-thickness skin loss. Full-thickness skin was then harvested from the amputated digits. 2 pieces were taken. They were defatted. The skin was then packed crest centered with the 15 blade. The skin grafts were then sewn in place with 5-0 nylon simple sutures. The wound of the base of the long finger was closed with 5-0 nylon simple sutures. When closing also has a 2 cm wound suffered dorsum of the third webspace. This was washed out and then closed with 5-0 nylon simple sutures. After adequate closure. The patient was given a digital blocks using 10 mL of 0.5% Marcaine. The tips appeared well perfused. Fluffy sterile dressings were applied, followed by a light Coban dressing. The patient was extubated and taken to the recovery room in stable condition.
--- NOTE | 2017-08-30 14:03 | Anesthesia Evaluation Post Op ---
Date of Encounter: 08/30/17 Time of Encounter: 14:02 - Vital Signs Vital Signs: Vital Signs/O2 Sat, Most Current Temp Pulse Resp BP Pulse Ox 98.1 F 68 16 145/86 98 08/30/17 13:52 08/30/17 13:52 08/30/17 13:52 08/30/17 13:52 08/30/17 13:52 - Lungs Lungs: Clear Ascult./Percussion - Airway Airway: Non-obstructed - Cardiovascular Regular Rate - Mental Status Mental Status: Alert & Oriented, Answers Appropriately - Pain Pain Scale: 0 Pain Scale used: Numeric (1 - 10) - Nausea Vomiting Nausea Vomiting: Not Present - Hydration Hydration: NPO - Discharge PostOp Status: Transfer Patient to floor
[2017-08-30] MEDS ORDERED: Ketorolac 30 MG/ML VIAL IVP PRN (14:15)
[2017-08-30] MEDS ORDERED: OXYCODONE Oral CONC 10 MG/0.5 ML ORAL.SYG SL PRN ×2 (14:15)
[2017-08-30] MEDS ORDERED: 0.9 % Sodium Chloride 1,000 ML IVC SCH (14:15)
[2017-08-30] MEDS ORDERED: Naloxone 0.4 MG/ML INJ IVP PRN (14:15)
[2017-08-30] MEDS ORDERED: *HR* Heparin 5,000 UNIT/ML VIAL SQ SCH (18:00)
[2017-08-30 19:03] VITALS: BP 156/84
[2017-08-30] MEDS ORDERED: traZODone 50 MG TABLET PO SCH (21:00)
[2017-08-30] MEDS ORDERED: Nicotine 14 MG PATCH.TD24 TD SCH (21:00)
[2017-08-31] MEDS ORDERED: Cyanocobalamin (B-12) 1,000 MCG TABLET PO SCH (09:00)
[2017-08-31] MEDS ORDERED: Cholecalciferol (D-3) 1,000 UNIT TABLET PO SCH (09:00)
== END 2017-08-30 17:30 | disposition home or self-care (01) ==
LOC: 3ANU 17:35 → EMEROO 17:35 → 3ANU 20:45
PROVIDERS: ADMIT Internal Medicine; ATTEND Internal Medicine